=== PATIENT | female | born 1965 | race Two or more races ===

== ENCOUNTER 2018-08-31 11:12 | Day surgery (SDC) | payer OTHER ==
[~2018-08-31] VITALS: Ht 162.6 cm; Wt 88.6 kg
[2018-08-31 11:58] VITALS: Ht 162.6 cm; Wt 88.6 kg
[2018-08-31 12:38] VITALS: BP 111/62; PULSE 76; RESP 20
[2018-08-31] MEDS ORDERED: MIDAZOLAM 1 MG/ML 2 ML INJ ONE ×2 (13:49)
[2018-08-31] MEDS ORDERED: FENTAnyl 50 MCG/ML VIAL ONE (13:50)
== END 2018-08-31 16:45 | disposition home or self-care (01) ==
LOC: GIL 11:12
PROVIDERS: ATTEND Internal Medicine
DX: Z12.11 Encounter for screening for malignant neoplasm of colon (principal); D12.4 Benign neoplasm of descending colon; D12.5 Benign neoplasm of sigmoid colon; E78.5 Hyperlipidemia, unspecified
CPT/HCPCS: 88305; J2250; J3010